=== PATIENT | female | born 1995 | race Caucasian/White ===

== ENCOUNTER 2017-05-31 11:57 | Emergency (ER) | payer BC ==
[2017-05-31 12:20] VITALS: BP 130/83
--- NOTE | 2017-05-31 12:40 | UC ---
Throat Pain/Nasal Sang HPI - HPI Summary HPI Summary: sore throat x 1 day + nausea and vomited x 8 no fever, + chills, no cough, no nasal congestion - History of Current Complaint Chief Complaint: UCGI Stated Complaint: VOMITTING,THROAT COMPLAINT Time Seen by Provider: 05/31/17 12:27 Hx Obtained From: Patient Hx Last Menstrual Period: 05/24/17 ?: No Onset/Duration: Gradual Onset, Lasting Days - 1, Still Present Severity: Moderate Cough: None Associated Signs & Symptoms: Negative: Dysphagia, FB Sensation, Drooling, Wheezing, Hoarseness, Sinus Discomfort, Nasal Discharge, Fever, Rash - Allergies/Home Medications Allergies/Adverse Reactions: Allergies Allergy/AdvReac Type Severity Reaction Status Date / Time No Known Allergies Allergy Verified 05/31/17 12:20 PMH/Surg Hx/FS Hx/Imm Hx Previously Healthy: Yes - Surgical History Surgical History: None - Family History Known Family History: Negative: Cardiac Disease, Diabetes - Social History Alcohol Use: Rare Substance Use Type: None Smoking Status (MU): Never Smoked Tobacco Review of Systems Constitutional: Chills, Fatigue Skin: Negative Eyes: Negative ENT: Sore Throat Respiratory: Negative Cardiovascular: Negative Gastrointestinal: Vomiting, Nausea Genitourinary: Negative All Other Systems Reviewed And Are Negative: Yes Physical Exam Triage Information Reviewed: Yes Appearance: Well-Appearing, No Pain Distress, Well-Nourished Vital Signs: Initial Vital Signs Temp 99.9 F 05/31/17 12:12 Pulse 94 05/31/17 12:12 Resp 18 05/31/17 12:12 BP 130/83 05/31/17 12:12 Vital Signs Reviewed: Yes Eyes: Positive: Conjunctiva Clear ENT: Positive: Normal ENT inspection, Hearing grossly normal, Pharyngeal erythema, Nasal drainage, Tonsillar swelling, Tonsillar exudate Neck: Positive: Supple, Nontender, No Lymphadenopathy Respiratory: Positive: Chest non-tender, Lungs clear, Normal breath sounds Cardiovascular: Positive: RRR, No Murmur, Pulses Normal Abdomen Description: Positive: Soft, Other: - LLQ TENDERNESS. Negative: CVA Tenderness (R), CVA Tenderness (L), Distended, Guarding Bowel Sounds: Positive: Present Neurological Exam: Normal Skin Exam: Normal Throat Pain/Nasal Course/Dx - Differential Dx/Diagnosis Differential Diagnosis/HQI/PQRI: Mononucleosis, Tonsillitis Provider Diagnoses: PHARYNGITIS Discharge - Discharge Plan Condition: Stable Disposition: HOME Prescriptions: Ondansetron [Zofran 8 MG Odt] 8 mg PO Q8H #9 tab Patient Education Materials: Pharyngitis (ED) Referrals: Non Staff,Doctor [Primary Care Provider] - 7 Days Additional Instructions: NEGATIVE RAPID STREP WILL CHECK FOR MONO CALL THE OFFICE IN ONE DAY FOR THE RESULTS
[2017-05-31 20:52] LABS: Manual Entry Verification MER0007; Mono Internal Control QC Line Present
== END 2017-05-31 13:00 | disposition home or self-care (01) ==
LOC: UCCORT 11:57
DX: J02.9 Acute pharyngitis, unspecified (principal)
CPT/HCPCS: 36415; 86308; 87651; 99212; G0463

== ENCOUNTER 2017-06-17 21:47 | Emergency (ER) | payer BC ==
[2017-06-17 21:58] VITALS: BP 144/91
--- NOTE | 2017-06-17 22:31 | UC ---
Throat Pain/Nasal Sang HPI - HPI Summary HPI Summary: 21 yo female with sore throat x 1 day friend just dxed with strep no f/c no JULIAN or myalgis fatigued - History of Current Complaint Chief Complaint: UCGeneralIllness Stated Complaint: SORE THROAT Time Seen by Provider: 06/17/17 22:27 Hx Obtained From: Patient Hx Last Menstrual Period: 2 wks ago Onset/Duration: Gradual Onset, Lasting Hours Severity: Moderate Pain Intensity: 4 Pain Scale Used: 0-10 Numeric Cough: None - Epiglottits Risk Factors Epiglottis Risk Factors: Negative - Allergies/Home Medications Allergies/Adverse Reactions: Allergies Allergy/AdvReac Type Severity Reaction Status Date / Time No Known Allergies Allergy Verified 06/17/17 21:55 PMH/Surg Hx/FS Hx/Imm Hx Previously Healthy: Yes - Surgical History Surgical History: None - Family History Known Family History: Negative: Cardiac Disease, Diabetes - Social History Alcohol Use: Rare Substance Use Type: None Smoking Status (MU): Never Smoked Tobacco Review of Systems Constitutional: Fatigue Skin: Negative Eyes: Negative ENT: Sore Throat Respiratory: Negative Cardiovascular: Negative Gastrointestinal: Negative Genitourinary: Negative Motor: Negative Neurovascular: Negative Musculoskeletal: Negative Neurological: Negative Psychological: Negative Is Patient Immunocompromised?: No All Other Systems Reviewed And Are Negative: Yes Physical Exam Triage Information Reviewed: Yes Appearance: Well-Appearing, No Pain Distress, Well-Nourished Vital Signs: Initial Vital Signs Temp 98.5 F 06/17/17 21:55 Pulse 96 06/17/17 21:55 Resp 16 06/17/17 21:55 BP 144/91 06/17/17 21:55 Pulse Ox 100 06/17/17 21:55 Vital Signs Reviewed: Yes Eyes: Positive: Conjunctiva Clear ENT: Positive: Hearing grossly normal, Tonsillar swelling. Negative: Nasal congestion, Nasal drainage, Tonsillar exudate, Muffled/hoarse voice Neck: Positive: Supple, Nontender, Enlarged Nodes @ - ant cervical Respiratory: Positive: Lungs clear, Normal breath sounds, No respiratory distress, No accessory muscle use Cardiovascular: Positive: RRR, No Murmur Musculoskeletal: Positive: ROM Intact, No Edema Neurological: Positive: Alert Psychological Exam: Normal Skin Exam: Normal Throat Pain/Nasal Course/Dx - Course Course Of Treatment: RS (-) - Differential Dx/Diagnosis Provider Diagnoses: acute tonsillitis Discharge - Discharge Plan Condition: Stable Disposition: HOME Prescriptions: Cephalexin CAP* [Keflex CAP*] 500 mg PO BID #20 cap Patient Education Materials: Tonsillitis (ED) Referrals: Non Staff,Doctor [Primary Care Provider] - Additional Instructions: strep test (-) recheck in 3-4 days if not better rest fluids tylenol or advil for pain
[2017-06-17] MEDS ORDERED: Cephalexin CAP* 500 MG PO ONE (22:32)
== END 2017-06-17 22:39 | disposition home or self-care (01) ==
LOC: UCCORT 21:47
DX: J03.90 Acute tonsillitis, unspecified (principal)
CPT/HCPCS: 87651; 99212; A9270-GY; G0463

== ENCOUNTER 2018-01-31 08:47 | Emergency (ER) | payer BC ==
[2018-01-31] MEDS ORDERED: Ondansetron ODT TAB* 4 MG PO ONE (11:17)
[2018-01-31 12:05] VITALS: BP 144/80
[2018-01-31] MEDS ORDERED: Ibuprofen TAB* 600 MG PO ONE (12:17)
--- NOTE | 2018-01-31 12:22 | UC ---
UC General HPI - HPI Summary HPI Summary: 22 yo female c/o feeling bad last several days. Very mild sore throat. Multiple episodes n/v today. No diarrhea. Denies urinary sx. No rash. + upper abd (R and L). Mild back pain. No sob / cp. + cough mild. - History of Current Complaint Chief Complaint: UCRespiratory Stated Complaint: VOMITTING/ST Time Seen by Provider: 01/31/18 11:16 Hx Obtained From: Patient Hx Last Menstrual Period: one week Pain Intensity: 8 - Allergy/Home Medications Allergies/Adverse Reactions: Allergies Allergy/AdvReac Type Severity Reaction Status Date / Time No Known Allergies Allergy Verified 01/31/18 10:09 Home Medications: Home Medications D-Methorphan/PE/Acetaminophen [Vicks Dayquil Cold & Flu] 1 cap PO ONCE PRN 01/31 [History Confirmed 01/31/18] O C 1 tab PO QAM 01/31/18 [History Confirmed 01/31/18] PMH/Surg Hx/FS Hx/Imm Hx Previously Healthy: Yes - Surgical History Surgical History: None - Family History Known Family History: Negative: Cardiac Disease, Diabetes - Social History Alcohol Use: Rare Substance Use Type: None Smoking Status (MU): Never Smoked Tobacco Review of Systems Constitutional: Negative, Fatigue Skin: Negative Eyes: Negative ENT: Sore Throat Respiratory: Cough Cardiovascular: Negative Gastrointestinal: Vomiting Genitourinary: Negative Motor: Negative Neurovascular: Negative Musculoskeletal: Negative Neurological: Negative Psychological: Negative Is Patient Immunocompromised?: No All Other Systems Reviewed And Are Negative: Yes Physical Exam Triage Information Reviewed: Yes Appearance: Well-Nourished - sitting up. Conversing in full sentance. NAD. Looks tired. Vital Signs: Initial Vital Signs Temp 100.3 F 01/31/18 09:57 Pulse 114 01/31/18 09:57 Resp 18 01/31/18 09:57 BP 139/95 01/31/18 09:57 Pulse Ox 100 01/31/18 09:57 Vital Signs Reviewed: Yes Eye Exam: Other - bilat conj injection, watery eyes. ENT: Positive: Pharyngeal erythema - post pharyngotonsillar redness, no sores / exudates appreciated., Nasal congestion, TM dull Neck exam: Normal Neck: Positive: Supple, Nontender, No Lymphadenopathy Respiratory Exam: Normal Respiratory: Positive: Chest non-tender, Lungs clear, Normal breath sounds, No respiratory distress, No accessory muscle use Cardiovascular Exam: Other - HR 110's, correlates with R radial pulse Cardiovascular: Positive: No Murmur, Pulses Normal, Brisk Capillary Refill Abdominal Exam: Other - Tender to pressure upper abd R and L just under ribs. No shaila / guard. + BS, slightly hyperactive. No cvat, although + subj low back discomfort. Musculoskeletal Exam: Normal - moves x 4 ext's. gait steady. Neurological Exam: Normal - grossly nonfoca Psychological Exam: Normal - conversing easily and appropriately Skin Exam: Normal - no visible or reported rash Course/Dx - Course Course Of Treatment: Zofran x 1, some relief. Temperature increased to over 102F (notified by RN). Ibuprofen / crackers. Recheck 12:45pm - still feels nauseas, has not vomited, but thinks she is about to throw up. Feels very cold. Not better, actually worse. D/w pt. Recommend further evaluation and management in ED. She expresses understanding and agreement. I offered to call her parents, she declines. Questions as posed answered to the best of my ability. Spoke with Vesna Gonzales NP at [place] [facility]. Influenza a/b neg. Strep neg. Monospot / cmp / crp / cbc ordered. Reviewed coa / tx plan with Ms. Jaimes. Questions as posed answered to the best of my ability. Friend will drive her to the ED. - Differential Dx - Multi-Symptom Provider Diagnoses: Acute n/v, febrile illness, volume depletion. Discharge - Sign-Out/Discharge Documenting (check all that apply): Discharge/Admit/Transfer - Discharge Plan Condition: Guarded Disposition: TRANS [facility] CARE [facility] Patient Education Materials: Fever in Adults (ED), Acute Nausea and Vomiting ( ED) Referrals: No Primary Care Phys,NOPCP [Primary Care Provider] - Additional Instructions: Please go directly to the Emergency Department. Call 911 for any problems en route. - Billing Disposition and Condition Condition: GUARDED Disposition: EMTALA
[2018-01-31 19:28] LABS: ABS Basophils 0.1 10^3/ul (0-0.2); ABS Eosinophils 0 10^3/ul (0-0.6); ABS Lymphocytes 0.6 10^3/ul (1.0-4.8); ABS Monocytes 0.9 10^3/ul (0-0.8); ABS Neutrophils 15.5 10^3/ul (1.5-7.7); ABS Nucleated RBC 0 10^3/ul; Eosinophil % 0 % (0-6); Hematocrit 38 % (35-47); Hemoglobin 13.3 g/dl (12.0-16.0); Lymphocyte % 3.5 % (25-47); Mean Corpuscular HGB Conc 35 g/dl (31-36); Mean Corpuscular Hemoglobin 31 pg (27-31); Mean Corpuscular Volume 91 fL (80-97); Mean Platelet Volume 8.3 um3 (7.4-10.4); Nucleated Red Blood Cells % 0; Platelet Count 302 10^3/ul (150-450); Red Blood Count 4.22 10^6/ul (4.0-5.4); Red Cell Distribution Width 12 % (10.5-15); White Blood Count 17.1 10^3/ul (3.5-10.8)
[2018-01-31 19:47] LABS: EGFR Non-African American 100.1 (>60)
--- NOTE | 2018-02-03 11:12 | UC ---
- Progress Note Progress Note: PLEASE CALL PATIENT. BLOOD WORK POSITIVE FOR MONO. NO ACUTE INTERVENTION REQUIRED. CONSERVATIVE MANAGEMENT INCLUDING REST, FLUIDS AND OTC MEDS NEEDED FOR DISCOMFORT. AVOID CONTACT SPORTS FOR ABOUT A MONTH DUE TO POSSIBILITY OF SPLENOMEGALY. FOLLOW-UP WITH PCP IF NEEDED. - GALINA CONNORS MD Discharge - Sign-Out/Discharge Documenting (check all that apply): Post-Discharge Follow Up - Discharge Plan Condition: Guarded Disposition: TRANS [facility] CARE FAC Patient Education Materials: Fever in Adults (ED), Acute Nausea and Vomiting ( ED) Referrals: No Primary Care Phys,NOPCP [Primary Care Provider] - Additional Instructions: Please go directly to the Emergency Department. Call 911 for any problems en route. - Billing Disposition and Condition Condition: GUARDED Disposition: EMTALA
== END 2018-01-31 13:12 | disposition short-term general hospital (02) ==
LOC: UCCORT 08:47
DX: R11.2 Nausea with vomiting, unspecified (principal); R50.9 Fever, unspecified; E86.9 Volume depletion, unspecified; Z32.02 Encounter for pregnancy test, result negative
CPT/HCPCS: 36415; 80053; 81003; 84702; 85025; 86140; 86308; 86664; 86665; 87086; 87502; 87651; 99212; A9270-GY; G0463

== ENCOUNTER 2018-07-09 11:19 | Emergency (ER) | payer BC ==
[2018-07-09 12:20] VITALS: BP 146/73
--- NOTE | 2018-07-09 12:36 | UC ---
Skin Complaint HPI - HPI Summary HPI Summary: Pt presents with "sore" on left side of chin that is tender, crusted over and mild erythema. 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 - History of Current Complaint Chief Complaint: UCSkin Time Seen by Provider: 07/09/18 12:30 Stated Complaint: SKIN COMPLAINT Hx Obtained From: Patient Hx Last Menstrual Period: 06/28 ?: No Onset/Duration: Gradual Onset, Lasting Days, Still Present Skin Exposure Onset/Duration: Days Ago Timing: Constant Onset Severity: Mild Current Severity: Moderate Pain Intensity: 1 Location: Discrete - chin Character: Redness, Raised, Painful Aggravating Factor(s): Touch Alleviating Factor(s): Nothing Associated Signs & Symptoms: Positive: Drainage, Tenderness - Allergy/Home Medications Allergies/Adverse Reactions: Allergies Allergy/AdvReac Type Severity Reaction Status Date / Time No Known Allergies Allergy Verified 07/09/18 12:20 Review of Systems Constitutional: Negative Skin: Other - crusted sore, Eyes: Negative ENT: Negative Respiratory: Negative Cardiovascular: Negative Gastrointestinal: Negative Genitourinary: Negative Motor: Negative Neurovascular: Negative Musculoskeletal: Negative Neurological: Negative Psychological: Negative Is Patient Immunocompromised?: No All Other Systems Reviewed And Are Negative: Yes PMH/Surg Hx/FS Hx/Imm Hx Previously Healthy: Yes - Surgical History Surgical History: None - Family History Known Family History: Negative: Cardiac Disease, Diabetes - Social History Occupation: Student Lives: Dormitory/Roommates Alcohol Use: Rare Substance Use Type: None Smoking Status (MU): Never Smoked Tobacco Have You Smoked in the Last Year: No - Immunization History Vaccination Up to Date: Yes Physical Exam Triage Information Reviewed: Yes Appearance: Well-Appearing Vital Signs: Initial Vital Signs Temp 98.5 F 07/09/18 12:12 Pulse 84 07/09/18 12:12 Resp 18 07/09/18 12:12 BP 146/73 07/09/18 12:12 Pulse Ox 99 07/09/18 12:12 Vital Signs Reviewed: Yes Eye Exam: Normal ENT Exam: Normal Dental Exam: Normal Neck exam: Normal Respiratory Exam: Normal Respiratory: Positive: No respiratory distress Musculoskeletal Exam: Normal Neurological Exam: Normal Psychological Exam: Normal Skin Exam: Other - nickel size raised, galeas crusted sore on left side of chin , tender to touch, with erythematous margins and center Course/Dx - Differential Diagnoses - Skin Complaint Differential Diagnoses: Cellulitis, Impetigo, MRSA - Diagnoses Provider Diagnoses: infected wound. impetigo Discharge - Sign-Out/Discharge Documenting (check all that apply): Patient Departure All imaging exams completed and their final reports reviewed: No Studies - Discharge Plan Condition: Stable Disposition: HOME Prescriptions: Mupirocin 2% OINT* [Bactroban 2 % Oint*] 1 applic TOPICAL Q12H 7 Days #1 tube Sulfamethox/Trimethoprim DS* [Bactrim DS 800/160 TAB*] 1 tab PO Q12H #14 tab Patient Education Materials: Wound Infection (ED) Forms: *School Release Referrals: [facility] [Outside] - If Needed No Primary Care Phys,NOPCP [Primary Care Provider] - - Billing Disposition and Condition Condition: STABLE Disposition: Home - Attestation Statements Provider Attestation: I was available for consult. This patient was seen by the MICHAEL. The patient was not presented to, seen by, or examined by me. -Lewis
== END 2018-07-09 12:46 | disposition home or self-care (01) ==
LOC: UCCORT 11:19
DX: S01.80XA Unspecified open wound of other part of head, initial encounter (principal); L08.9 Local infection of the skin and subcutaneous tissue, unspecified; L01.00 Impetigo, unspecified
CPT/HCPCS: 99212; G0463

== ENCOUNTER 2018-08-30 18:02 | Emergency (ER) | payer BC ==
[2018-08-30 19:26] VITALS: BP 142/86
--- NOTE | 2018-08-30 20:14 | ED ---
Respiratory - HPI Summary HPI Summary: 22-year-old female presents with 2-1/2 week history of chest congestion and productive cough for green sputum. States onset of symptoms she was also experiencing some nasal congestion and sore throat however these resolved after a few days. Denies fever, chills, chest pain, shortness of breath, abdominal pain, nausea, or vomiting. - History of Current Complaint Chief Complaint: UCRespiratory Stated Complaint: COUGH,CONGESTION Time Seen by Provider: 08/30/18 19:18 Hx Obtained From: Patient Onset/Duration: Gradual Onset, Lasting Weeks Pain Intensity: 0 Character: Cough (Productive) Sputum Amount: Small Sputum Color: Green Aggravating Factor(s): Nothing Alleviating Factor(s): Nothing - Allergy/Home Medications Allergies/Adverse Reactions: Allergies Allergy/AdvReac Type Severity Reaction Status Date / Time No Known Allergies Allergy Verified 08/30/18 19:19 Home Medications: Home Medications Oral Contraceptive 1 tab PO DAILY 08/30/18 [History] PMH/Surg Hx/FS Hx/Imm Hx Previously Healthy: Yes Cardiovascular History: Reports: Hx Hypertension Infectious Disease History: No Infectious Disease History: Denies: Traveled Outside the [place] in Last 30 Days - Family History Known Family History: Positive: Non-Contributory - Social History Occupation: Student Lives: Dormitory/Roommates Alcohol Use: Rare Substance Use Type: Reports: None Smoking Status (MU): Never Smoked Tobacco Have You Smoked in the Last Year: No Review of Systems Negative: Fever, Chills Negative: Drainage, Erythema Negative: Sore Throat, Ear Ache, Nasal Discharge Negative: Palpitations Positive: Cough. Negative: Shortness Of Breath Negative: Abdominal Pain, Vomiting, Nausea Negative: Rash All Other Systems Reviewed And Are Negative: Yes Physical Exam - Summary Physical Exam Summary: GENERAL APPEARANCE: Well developed, well nourished, alert and cooperative, and appears to be in no acute distress. EYES: Conjunctiva clear without discharge. EARS: External auditory canals and tympanic membranes clear, hearing grossly intact. NOSE: No nasal discharge. THROAT: Oral cavity and pharynx normal. No inflammation, swelling, exudate, or lesions. Teeth and gingiva in good general condition. NECK: Neck supple, non-tender without lymphadenopathy. CARDIAC: Normal S1 and S2. No S3, S4 or murmurs. Rhythm is regular. There is no peripheral edema, cyanosis or pallor. Extremities are warm and well perfused. Capillary refill is less than 2 seconds. LUNGS: Clear to auscultation and percussion without rales, rhonchi, wheezing or diminished breath sounds. Loose non-productive cough. ABDOMEN: Positive bowel sounds. Soft, nondistended, nontender. No guarding or rebound. No masses or hepatosplenomegally. MUSKULOSKELETAL: ROM intact to all extremities. No joint erythema or tenderness. Normal muscular development. Normal gait. NEUROLOGICAL: Alert and oriented. SKIN: Skin normal color, texture and turgor with no lesions or eruptions. Triage Information Reviewed: Yes Vital Signs On Initial Exam: Initial Vitals Temp Pulse Resp BP Pulse Ox 98.7 F 87 20 142/86 100 08/30/18 19:21 08/30/18 19:21 08/30/18 19:21 08/30/18 19:21 08/30/18 19:21 Vital Signs Reviewed: Yes Diagnostics - Vital Signs Vital Signs Temp Pulse Resp BP Pulse Ox 08/30/18 19:21 98.7 F 87 20 142/86 100 - Laboratory Lab Statement: Any lab studies that have been ordered have been reviewed, and results considered in the medical decision making process. Disposition - Course Course Of Treatment: 22-year-old female presents with 2-1/2 week history of chest congestion and productive cough for green sputum. States onset of symptoms she was also experiencing some nasal congestion and sore throat however these resolved after a few days. Denies fever, chills, chest pain, shortness of breath, abdominal pain, nausea, or vomiting. Afebrile. Exam unremarkable except for a loose non-productive cough. Likely an acute bronchitis however considering the duration of symptoms will treat with course of azithromycin to cover for secondary bacterial infection as well as symptomatic treatment including Tessalon Perles PRN for cough. She is to follow up with the [facility] or her PCP in 7 days if symptoms persist. Warning symptoms reviewed. Verbalizes understanding and agrees with POC. - Differential Dx - Cardiopulmonary Differential Diagnoses - Cardiopulmonary: Acute Dyspnea, Bronchitis, Lower Resp Infection, Sinusitis - Diagnoses Provider Diagnoses: Acute bronchitis Discharge - Sign-Out/Discharge Documenting (check all that apply): Patient Departure All imaging exams completed and their final reports reviewed: No Studies - Discharge Plan Condition: Stable Disposition: HOME Prescriptions: Azithromyxin BAILEE (NF) [Z-Bailee (Zithromax) 250 mg tabs #6] 2 tab PO .TODAY, THEN 1 DAILY #6 tab Benzonatate CAP* [Tessalon 100 MG CAP*] 100 mg PO TID PRN #30 cap PRN Reason: Cough Patient Education Materials: Acute Bronchitis (ED) Referrals: No Primary Care Phys,NOPCP [Primary Care Provider] - [facility] [Outside] - 7 Days (If no improvement in symptoms.) Additional Instructions: Your history and exam are consistent with an acute bronchitis. Bronchitis is typically caused by a viral infection however considering the duration of your symptoms we will treat for an possible secondary bacterial infection. Start azithromycin 2 tabs today then 1 tab a day for next 4 days. Stay well hydrated. Take acetaminophen (Tylenol) or ibuprofen (Advil, Motrin) according to directions as needed for fever or pain. Use Tessalon Perles 1 cap every 8 hours as needed for cough. Follow-up with the [facility] or your primary care provider in 7 days if symptoms persist. Seek immediate medical attention if you have a persistent fever greater than 100.5 F despite taking acetaminophen or ibuprofen, you are having difficulty breathing, chest pain, or have any worsening of symptoms. - Billing Disposition and Condition Condition: STABLE Disposition: Home
== END 2018-08-30 20:20 | disposition home or self-care (01) ==
LOC: UCCORT 18:02
DX: J20.9 Acute bronchitis, unspecified (principal); I10 Essential (primary) hypertension
CPT/HCPCS: 99212; G0463